=== PATIENT | female | born 1960 | race Caucasian/White ===

== ENCOUNTER 2021-02-07 12:13 | Emergency (ER) | payer MEDICAID, SELFPAY ==
[~2021-02-07] VITALS: Ht 157.5 cm; Wt 72.6 kg
[2021-02-07 12:32] VITALS: BP 117/67
--- NOTE | 2021-02-07 12:38 | NUR ---
Pt triaged. Awaiting outside to be seen by MD.
--- NOTE | 2021-02-07 12:40 | NUR ---
Pt bib self c/o cough, dyspnea upon exertion, and chills. Pt was exposed to COVID-19 by family. Family tested + for Covid last week. Pt took 3 covid tests that all came back -. Pt O2 sauratin 97% on RA. Pt awake and alert. A&O x4. GCS 15. Awaiting to be seen by MD Allergies: NKA Med hx: Hypothyroidism, HDL, and asthma
--- NOTE | 2021-02-07 13:30 | NUR ---
MIRTHA MELGAR SAMPLE COLLECTED AND WALKED TO LAB
[2021-02-07] MEDS ORDERED: BENZ-196 PO (14:37)
[2021-02-07 14:56] VITALS: BP 113/84
--- NOTE | 2021-02-07 15:00 | NUR ---
Patient discharged with v/s stable. Written and verbal after care instructions given and explained. Patient alert, oriented and verbalized understanding of instructions. Ambulatory with steady gait. All questions addressed prior to discharge. ID band removed. Patient advised to follow up with PMD. Rx of Meredith Villalba was given. Patient educated on indication of medication including possible reaction and side effects. Opportunity to ask questions provided and answered.
--- NOTE | 2021-02-07 15:02 | NUR ---
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 Advised to pick it up from registration window.
== END 2021-02-07 15:02 | disposition home or self-care (01) ==
LOC: MED 12:13
DX: R05 Cough (principal); Z20.822 Contact with and (suspected) exposure to COVID-19; J45.909 Unspecified asthma, uncomplicated; Z79.899 Other long term (current) drug therapy; Z90.710 Acquired absence of both cervix and uterus
CPT/HCPCS: 71045; 99284